=== PATIENT | male | born 1990 | race Caucasian/White ===

== ENCOUNTER 2016-11-03 09:13 | Emergency (ER) | payer OTHER, BC ==
--- NOTE | 2016-11-03 10:31 | DIAGNOSTIC IMAGING REPORT ---
PROCEDURE: XR CHEST 2 VIEW INDICATION: CHEST PAIN TECHNIQUE: PA and lateral views. COMPARISON: None. FINDINGS: Lungs are clear. Heart and mediastinum are normal. Thorax is normal. IMPRESSION: 1. Negative chest.
--- NOTE | 2016-11-03 10:33 | DIAGNOSTIC IMAGING REPORT ---
PROCEDURE: XR CERVICAL SPINE 2 OR 3 VIEW INDICATION: NECK TRAUMA/INJURY TECHNIQUE: Three views. COMPARISON: None. FINDINGS: Osseous structures and disc spaces are normal. No evidence of an acute process or fracture. IMPRESSION: 1. Negative cervical spine.
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
--- NOTE | 2016-11-03 11:05 | ED ORDER SUMMARY ---
..... Patient: MUSTAPHA PRESCOTT OrderSheet [facility] VisitID: [id number] [address] [place] [address] 25y, M Registration Date/Time: 11/03/2016 ORDER SHEET Weight: 66.2 kg (stated) Allergies: None GENERAL ORDERS: Chest 2V Urgent (09:39 11/03/2016 Jack MARTINEZ) (Ack 9:42 Dusty) (10:28 MWinterer R.N.) Cervical Spine 2 or 3V Urgent (09:39 11/03/2016 Jack MARTINEZ) (Ack 9:42 Dusty) (10:28 MWinterer R.N.) Shoulder 2V or more Right Urgent (09:40 11/03/2016 Jack MARTINEZ) (Ack 9:42 Dusty) (10:28 MWinterer R.N.) MEDICATION ORDERS: IV FLUIDS: ORDER SHEET NOTES: [Electronically signed by Allie Ch R.N. (19:11 11/03/2016)] [Electronically signed by Sebas Kerr MD (21:24 11/04/2016)] [Electronically locked/signed by Allie Ch R.N. (19:11 11/03/2016)]
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
--- NOTE | 2016-11-03 11:05 | ED ORDER SUMMARY ---
..... Patient: MUSTAPHA PRESCOTT OrderSheet [facility] VisitID: [id number] [address] [place] [address] 25y, M Registration Date/Time: 11/03/2016 ORDER SHEET Weight: 66.2 kg (stated) Allergies: None GENERAL ORDERS: Chest 2V Urgent (09:39 11/03/2016 Jack MARTINEZ) (Ack 9:42 Dusty) (10:28 MWinterer R.N.) Cervical Spine 2 or 3V Urgent (09:39 11/03/2016 Jack MARTINEZ) (Ack 9:42 Dusty) (10:28 MWinterer R.N.) Shoulder 2V or more Right Urgent (09:40 11/03/2016 Jack MARTINEZ) (Ack 9:42 Dusty) (10:28 MWinterer R.N.) MEDICATION ORDERS: IV FLUIDS: ORDER SHEET NOTES: [Electronically signed by Allie Ch R.N. (19:11 11/03/2016)] [Electronically signed by Sebas Kerr MD (21:24 11/04/2016)] [Electronically locked/signed by Allie Ch R.N. (19:11 11/03/2016)]
--- NOTE | 2016-11-03 11:11 | DIAGNOSTIC IMAGING REPORT ---
PROCEDURE: XR SHOULDER 2 OR MORE VW-RIGHT INDICATION: TRAUMA/INJURY TECHNIQUE: Three views of the right shoulder COMPARISON: None. FINDINGS: Normal mineralization. No fractures. No dislocation or separation. No suspicious soft tissue calcifications. The visible rib arcs and the underlying lung appear normal. IMPRESSION: 1. Intact right shoulder.
--- NOTE | 2016-11-04 21:24 | ED MED RECONCILIATION SUMMARY ---
Patient: MUSTAPHA PRESCOTT Medication Reconciliation Report [facility] VisitID: [id number] [address] [place] [address] 25y, M Registration Date/Time: 11/03/2016 Weight: 66.2 kg Height/Length: 69 in. BMI: 21.6 ALLERGIES: None The patient's Home Medications are listed below: NONE. The source(s) of the original Home Medication information: Not obtained. The following Medications were given to the patient in the Emergency Department: None. The following Medications were prescribed to the patient: Motrin (available over the counter): take according to label instructions. -- Sebas Kerr MD
--- NOTE | 2016-11-04 21:24 | ED MAR SUMMARY ---
..... Medication Administration Record [facility] [address] [place], [place] [id number] Patient: CRISS PRESCOTTSelma Ashford Visit ID: [id number] 25y, M Weight: 66.2 kg Height/Length: 69 in BMI: 21.6 ALLERGIES: None
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
--- NOTE | 2016-11-04 21:24 | ED MAR SUMMARY ---
..... Medication Administration Record [facility] [address] [place], [place] [id number] Patient: CRISS PRESCOTTSelma Ashford Visit ID: [id number] 25y, M Weight: 66.2 kg Height/Length: 69 in BMI: 21.6 ALLERGIES: None
--- NOTE | 2016-11-04 21:24 | ED MED RECONCILIATION SUMMARY ---
Patient: MUSTAPHA PRESCOTT Medication Reconciliation Report [facility] VisitID: [id number] [address] [place] [address] 25y, M Registration Date/Time: 11/03/2016 Weight: 66.2 kg Height/Length: 69 in. BMI: 21.6 ALLERGIES: None The patient's Home Medications are listed below: NONE. The source(s) of the original Home Medication information: Not obtained. The following Medications were given to the patient in the Emergency Department: None. The following Medications were prescribed to the patient: Motrin (available over the counter): take according to label instructions. -- Sebas Kerr MD
== END 2016-11-03 11:56 | disposition home or self-care (01) ==
LOC: ED SRH 09:13
DX: S43.421A Sprain of right rotator cuff capsule, initial encounter (principal); S16.1XXA Strain of muscle, fascia and tendon at neck level, initial encounter; V59.40XA Driver of pick-up truck or van injured in collision with unspecified motor vehicles in traffic accident, initial encounter; Y93.89 Activity, other specified; Y92.410 Unspecified street and highway as the place of occurrence of the external cause; Y99.9 Unspecified external cause status